=== PATIENT | female | born 1940 | race Caucasian/White ===

== ENCOUNTER 2018-03-31 17:49 | Inpatient (IN) | payer OTHER, MEDICAID ==
[~2018-03-31] VITALS: Ht 157.5 cm; Wt 110.7 kg
[2018-03-31] MEDS ORDERED: LevALBUTEROL HCL 1.25 MG/0.5 ML *CONC.* VIAL.NEB (XOPENEX CONC.) INH PRN (20:45)
[2018-03-31] MEDS ORDERED: ALPRAZolam 0.25 MG TABLET PO PRN (20:45)
[2018-03-31 20:51] VITALS: BP_SYST 130
[2018-03-31] MEDS ORDERED: cefTRIAXone 1 GM VIAL ONE (22:34)
[2018-03-31] MEDS: ZOLPIDEM TARTRATE 5 MG TABLET PO SCH (22:39)
[2018-03-31] MEDS: BACLOFEN 10 MG TABLET PO SCH (22:39)
[2018-03-31] MEDS: CALCIUM CARBONATE/VITAMIN D3 1 TAB TABLET PO SCH (22:39)
[2018-03-31] MEDS: OXYBUTYNIN CHLORIDE 5 MG TABLET PO SCH (22:39)
[2018-03-31] MEDS: INSULIN REGULAR, HUMAN 100 UNITS/ML, 10 ML VIAL (novoLIN R) SUBCUT PRN (22:44)
[2018-03-31] MEDS: oxyCODONE HCL 5 MG TABLET PO PRN (22:50)
[2018-03-31] MEDS: cefTRIAXone 1 GM in D5W 50 ML IV SCH (23:28)
[2018-03-31] MEDS: GABAPENTIN 300 MG CAPSULE PO SCH (23:33)
[2018-03-31 23:59] VITALS: BP_SYST 130
[2018-04-01 00:40] VITALS: BP_SYST 141
[2018-04-01] MEDS: LevALBUTEROL HCL 1.25 MG/0.5 ML *CONC.* VIAL.NEB (XOPENEX CONC.) INH SCH ×4 (00:58→20:06)
[2018-04-01 01:44] LABS: BILIRUBIN,URINE NEGATIVE (NEGATIVE); BLOOD, URINE NEGATIVE (NEGATIVE); CLARITY/URINE CLEAR (CLEAR); COLOR,URINE YELLOW (YELLOW); GLUCOSE,URINE NEGATIVE (NEGATIVE); KETONES,URINE NEGATIVE (NEGATIVE); LEUKOCYTE ESTERASE ,URINE NEGATIVE (NEGATIVE); NITRITE, URINE NEGATIVE (NEGATIVE); PROTEIN URINE NEGATIVE (NEGATIVE); UROBILINOGEN,URINE 0.2 (0.2-1.0)
[2018-04-01] MEDS: MORPHINE 2 MG/ML INJ. SYRINGE IVP PRN ×3 (04:35→16:51)
[2018-04-01] MEDS: INSULIN REGULAR, HUMAN 100 UNITS/ML, 10 ML VIAL (novoLIN R) SUBCUT PRN ×4 (07:06→21:22)
[2018-04-01 07:27] LABS: BASOPHILS # (AUTO) 0.1 K/uL (0.0-0.2); BASOPHILS % (AUTO) 0.7 % (0.0-2.0); EOSINOPHILS # (AUTO) 0.2 K/uL (0.0-0.4); EOSINOPHILS % (AUTO) 2.7 % (0.0-4.0); HEMATOCRIT 29.4 % (36-48); HEMOGLOBIN 9.6 g/dL (12.0-16.0); LYMPHOCYTES # (AUTO) 2.5 K/uL (1.0-5.5); LYMPHOCYTES % (AUTO) 27.6 % (20.5-51.5); MEAN CORPUSCULAR HEMOGLOBIN 29 pg (27-31); MEAN CORPUSCULAR HGB CONC 33 % (32-36); MEAN CORPUSCULAR VOLUME 89 fL (79.0-98.0); MONOCYTES # (AUTO) 0.8 K/uL (0.0-1.0); NEUTROPHILS # (AUTO) 5.3 K/uL (1.8-7.7); PLATELET COUNT (AUTO) 361 K/uL (130-430); RED BLOOD CELL COUNT(AUTO) 3.29 MIL/uL (4.2-6.2); RED CELL DISTRIBUTION WIDTH 13.7 % (9.0-15.0); WHITE BLOOD COUNT (AUTO) 8.9 K/uL (4.8-10.8)
[2018-04-01 07:53] LABS: ANION GAP 9 (5-15); CHLORIDE 103 mmol/L (98-107); CREATININE 1.14 mg/dL (0.55-1.30); GLUCOSE 212 mg/dL (70-99); POTASSIUM 4.1 mmol/L (3.5-5.1); SODIUM SERUM 138 mmol/L (136-145); UREA NITROGEN, BLOOD 24 mg/dL (8-21)
[2018-04-01 08:00] VITALS: BP_SYST 140
[2018-04-01] MEDS: ATORVASTATIN 20 MG TABLET PO SCH (09:29)
[2018-04-01] MEDS: NICOTINE 21 MG/24 HR PATCH.TD24 TD SCH (09:29)
[2018-04-01] MEDS: PARoxetine HCL 20 MG TABLET PO SCH (09:29)
[2018-04-01] MEDS: VALSARTAN 160 MG TABLET (DIOVAN) PO SCH (09:29)
[2018-04-01] MEDS: PREDNISONE 10 MG TABLET PO SCH (09:30)
[2018-04-01] MEDS: PANTOPRAZOLE SODIUM 40 MG TAB PO SCH (09:30)
[2018-04-01] MEDS: GABAPENTIN 300 MG CAPSULE PO SCH ×3 (09:30→21:17)
[2018-04-01] MEDS: HYDROCHLOROTHIAZIDE 12.5 MG CAPSULE (HCTZ) PO SCH (09:30)
[2018-04-01] MEDS: BACLOFEN 10 MG TABLET PO SCH ×2 (09:30→21:17)
[2018-04-01] MEDS: ASPIRIN 81 MG TAB.CHEW PO SCH (09:30)
[2018-04-01] MEDS: CALCIUM CARBONATE/VITAMIN D3 1 TAB TABLET PO SCH ×2 (09:30→21:17)
[2018-04-01] MEDS: CHOLECALCIFEROL (VITAMIN D-3) 400 UNIT TABLET PO SCH (09:30)
[2018-04-01] MEDS: OXYBUTYNIN CHLORIDE 5 MG TABLET PO SCH ×2 (09:30→21:16)
[2018-04-01 13:24] VITALS: BP_SYST 112
[2018-04-01 17:00] VITALS: BP_SYST 108
[2018-04-01 20:10] VITALS: BP_SYST 107
[2018-04-01] MEDS: ZOLPIDEM TARTRATE 5 MG TABLET PO SCH (21:00)
[2018-04-01] MEDS: cefTRIAXone 1 GM in D5W 50 ML IV SCH (21:17)
[2018-04-01] MEDS: oxyCODONE HCL 5 MG TABLET PO PRN (21:36)
[2018-04-02 00:30] VITALS: BP_SYST 128
[2018-04-02] MEDS: LevALBUTEROL HCL 1.25 MG/0.5 ML *CONC.* VIAL.NEB (XOPENEX CONC.) INH SCH ×4 (01:35→19:58)
[2018-04-02] MEDS: MORPHINE 2 MG/ML INJ. SYRINGE IVP PRN ×2 (05:43→13:13)
[2018-04-02] MEDS: INSULIN REGULAR, HUMAN 100 UNITS/ML, 10 ML VIAL (novoLIN R) SUBCUT PRN ×4 (05:57→22:35)
[2018-04-02] MEDS: ATORVASTATIN 20 MG TABLET PO SCH (09:10)
[2018-04-02] MEDS: NICOTINE 21 MG/24 HR PATCH.TD24 TD SCH (09:10)
[2018-04-02] MEDS: PARoxetine HCL 20 MG TABLET PO SCH (09:10)
[2018-04-02] MEDS: CALCIUM CARBONATE/VITAMIN D3 1 TAB TABLET PO SCH ×2 (09:11→22:22)
[2018-04-02] MEDS: GABAPENTIN 300 MG CAPSULE PO SCH ×3 (09:11→22:22)
[2018-04-02] MEDS: PREDNISONE 10 MG TABLET PO SCH (09:11)
[2018-04-02] MEDS: CHOLECALCIFEROL (VITAMIN D-3) 400 UNIT TABLET PO SCH (09:11)
[2018-04-02] MEDS: BACLOFEN 10 MG TABLET PO SCH ×2 (09:11→22:22)
[2018-04-02] MEDS: PANTOPRAZOLE SODIUM 40 MG TAB PO SCH (09:11)
[2018-04-02] MEDS: OXYBUTYNIN CHLORIDE 5 MG TABLET PO SCH ×2 (09:16→22:22)
[2018-04-02] MEDS: HYDROCHLOROTHIAZIDE 12.5 MG CAPSULE (HCTZ) PO SCH (09:16)
[2018-04-02] MEDS: ASPIRIN 81 MG TAB.CHEW PO SCH (09:16)
[2018-04-02] MEDS: VALSARTAN 160 MG TABLET (DIOVAN) PO SCH (09:17)
[2018-04-02 09:25] VITALS: BP_SYST 127
[2018-04-02 12:40] VITALS: BP_SYST 131
[2018-04-02 16:30] VITALS: BP_SYST 109
[2018-04-02] MEDS: ZOLPIDEM TARTRATE 5 MG TABLET PO SCH (21:00)
[2018-04-02] MEDS: cefTRIAXone 1 GM in D5W 50 ML IV SCH (22:24)
[2018-04-03 00:10] VITALS: BP_SYST 138
[2018-04-03] MEDS: LevALBUTEROL HCL 1.25 MG/0.5 ML *CONC.* VIAL.NEB (XOPENEX CONC.) INH SCH ×3 (01:20→13:11)
[2018-04-03] MEDS: ZOLPIDEM TARTRATE 5 MG TABLET PO SCH (01:59)
[2018-04-03] MEDS: MORPHINE 2 MG/ML INJ. SYRINGE IVP PRN ×2 (03:27→13:25)
[2018-04-03] MEDS: INSULIN REGULAR, HUMAN 100 UNITS/ML, 10 ML VIAL (novoLIN R) SUBCUT PRN ×2 (06:09→11:39)
[2018-04-03 08:06] VITALS: BP_SYST 137
[2018-04-03] MEDS: NICOTINE 21 MG/24 HR PATCH.TD24 TD SCH (08:37)
[2018-04-03] MEDS: CHOLECALCIFEROL (VITAMIN D-3) 400 UNIT TABLET PO SCH (08:37)
[2018-04-03] MEDS: ATORVASTATIN 20 MG TABLET PO SCH (08:37)
[2018-04-03] MEDS: PARoxetine HCL 20 MG TABLET PO SCH (08:38)
[2018-04-03] MEDS: BACLOFEN 10 MG TABLET PO SCH (08:38)
[2018-04-03] MEDS: VALSARTAN 160 MG TABLET (DIOVAN) PO SCH (08:38)
[2018-04-03] MEDS: HYDROCHLOROTHIAZIDE 12.5 MG CAPSULE (HCTZ) PO SCH (08:39)
[2018-04-03] MEDS: CALCIUM CARBONATE/VITAMIN D3 1 TAB TABLET PO SCH (08:40)
[2018-04-03] MEDS: OXYBUTYNIN CHLORIDE 5 MG TABLET PO SCH (08:40)
[2018-04-03] MEDS: ASPIRIN 81 MG TAB.CHEW PO SCH (08:40)
[2018-04-03] MEDS: PREDNISONE 10 MG TABLET PO SCH (08:40)
[2018-04-03] MEDS: GABAPENTIN 300 MG CAPSULE PO SCH ×2 (08:40→14:52)
[2018-04-03] MEDS: oxyCODONE HCL 5 MG TABLET PO PRN (08:40)
[2018-04-03] MEDS: PANTOPRAZOLE SODIUM 40 MG TAB PO SCH (08:40)
[2018-04-03 09:59] VITALS: BP_SYST 137
[2018-04-03 12:00] VITALS: BP_SYST 142
[2018-04-03 15:07] VITALS: BP_SYST 130
[2018-04-03 16:39] VITALS: BP_SYST 130
== END 2018-04-03 17:28 | DRG 563 ==
LOC: SMU 17:49
PROVIDERS: ADMIT Family Medicine; ATTEND Family Medicine
DX: S42.302A Unspecified fracture of shaft of humerus, left arm, initial encounter for closed fracture (principal); N39.0 Urinary tract infection, site not specified; Z68.41 Body mass index [BMI] 40.0-44.9, adult; M81.0 Age-related osteoporosis without current pathological fracture; J44.9 Chronic obstructive pulmonary disease, unspecified; I10 Essential (primary) hypertension; E11.22 Type 2 diabetes mellitus with diabetic chronic kidney disease; E53.8 Deficiency of other specified B group vitamins; E55.9 Vitamin D deficiency, unspecified; E66.01 Morbid (severe) obesity due to excess calories; E78.2 Mixed hyperlipidemia; G89.4 Chronic pain syndrome; I12.9 Hypertensive chronic kidney disease with stage 1 through stage 4 chronic kidney disease, or unspecified chronic kidney disease; N18.3 Chronic kidney disease, stage 3 (moderate); W19.XXXA Unspecified fall, initial encounter; Y93.89 Activity, other specified; Y92.89 Other specified places as the place of occurrence of the external cause; Y99.8 Other external cause status; Z79.4 Long term (current) use of insulin; Z87.891 Personal history of nicotine dependence
CPT/HCPCS: 36415; 71045; 73060-TC; 80048; 81003; 82962; 85025; 87086; 94640; 94760; 97110-GP; 97116-GP; 97530-GP; J0696; J1815; J2270; J7060; J7512; J7612

== ENCOUNTER 2019-05-08 14:38 | Emergency (ER) | payer OTHER ==
[~2019-05-08] VITALS: Ht 157.5 cm; Wt 120.2 kg
[2019-05-08 15:13] VITALS: BP_SYST 154
[2019-05-08] MEDS ORDERED: NACL 0.9% 1,000 ML IV ONE ×2 (15:29→18:15)
[2019-05-08] MEDS ORDERED: methylPREDNISolone SOD SUCC/PF 62.5 MG/ML VIAL IVP ONE (15:30)
[2019-05-08] MEDS ORDERED: ALBUTEROL SULFATE 0.083% 2.5 MG/3 ML VIAL.NEB IH ONE (15:30)
[2019-05-08] MEDS ORDERED: IPRATROPIUM BROM 0.5 MG/2.5 ML VIAL.NEB (ATROVENT) IH ONE (15:30)
[2019-05-08] MEDS ORDERED: EPINEPHrine JECT 1 MG/10 ML SYR SUBCUT ONE (15:45)
[2019-05-08] MEDS ORDERED: EPINEPHrine 1 MG/ML AMP SUBCUT ONE (16:00)
[2019-05-08] MEDS ORDERED: FAMOTIDINE PF 20 MG/2 ML VIAL IVP ONE (16:00)
[2019-05-08 16:06] LABS: HEMOGLOBIN 14.1 g/dL (12.0-16.0); MEAN CORPUSCULAR HEMOGLOBIN 33 pg (27-31); MEAN CORPUSCULAR HGB CONC 34 % (32-36); MEAN CORPUSCULAR VOLUME 97 fL (79.0-98.0); PLATELET COUNT (AUTO) 239 K/uL (130-430); RED BLOOD CELL COUNT(AUTO) 4.35 MIL/uL (4.2-6.2); RED CELL DISTRIBUTION WIDTH 13.2 % (9.0-15.0); WHITE BLOOD COUNT (AUTO) 19.3 K/uL (4.8-10.8)
[2019-05-08 16:36] LABS: ANION GAP 11 (5-15); CALCIUM 9.3 mg/dL (8.4-11.0); CHLORIDE 99 mmol/L (98-107); CREATININE 1.04 mg/dL (0.55-1.30); POTASSIUM 3.2 mmol/L (3.5-5.1); SODIUM SERUM 140 mmol/L (136-145); UREA NITROGEN, BLOOD 21 mg/dL (8-21)
[2019-05-08 16:40] LABS: INR 0.9 (0.8-1.2); PROTHROMBIN TIME 9.5 SECS (9.5-12.5)
[2019-05-08 16:42] LABS: ALANINE AMINOTRANSFERASE 30 U/L (12-78); ALBUMIN 3.5 g/dL (3.4-4.8); ASPARTATE AMINOTRANSFERASE 16 U/L (10-37); LIPASE 29 U/L (73-393); TOTAL BILIRUBIN 0.4 mg/dL (0.0-1.0)
[2019-05-08 16:48] LABS: GLUCOSE 142 mg/dL (70-99)
[2019-05-08 16:49] LABS: BILIRUBIN,URINE NEGATIVE (NEGATIVE); BLOOD, URINE NEGATIVE (NEGATIVE); CLARITY/URINE SL CLOUDY (CLEAR); COLOR,URINE YELLOW (YELLOW); GLUCOSE,URINE TRACE (NEGATIVE); KETONES,URINE NEGATIVE (NEGATIVE); LEUKOCYTE ESTERASE ,URINE 1+ (NEGATIVE); NITRITE, URINE POSITIVE (NEGATIVE); PH,URINE 6.5 (5.0-8.0); PROTEIN URINE NEGATIVE (NEGATIVE); UROBILINOGEN,URINE 0.2 (0.2-1.0)
[2019-05-08 17:25] LABS: BAND % (MANUAL) 16 % (0-6); EOSINOPHILS % (MANUAL) 0 % (0-7); LYMPHOCYTES % (MANUAL) 5 % (20-46); MONOCYTES % (MANUAL) 5 % (0-11)
[2019-05-08 17:26] LABS: BASOPHILS % (MANUAL) 0 % (0-2)
[2019-05-08 17:50] LABS: BACTERIA,URINE MANY /HPF (None Seen); RBC,URINE 0-3 /HPF (0-3); WBC,URINE 50-80 /HPF (0-3)
[2019-05-08 17:51] LABS: MUCUS,URINE None Seen /LPF (None Seen)
[2019-05-08] MEDS ORDERED: AREDS (18:06)
[2019-05-08] MEDS ORDERED: CRAN200C (18:07)
[2019-05-08] MEDS ORDERED: LEVA0.3126 (18:07)
[2019-05-08] MEDS ORDERED: MAGN250T10 (18:07)
[2019-05-08] MEDS ORDERED: MELA10CA (18:07)
[2019-05-08] MEDS ORDERED: ZOLP5TAB7 (18:07)
[2019-05-08] MEDS ORDERED: [UNRECOGNIZED DRUG - OTHER] (18:07)
[2019-05-08] MEDS ORDERED: DOCU50CA7 (18:07)
[2019-05-08] MEDS ORDERED: OXYB5TAB11 (18:07)
[2019-05-08] MEDS ORDERED: Lantus (18:07)
[2019-05-08] MEDS ORDERED: PRED10TA (18:07)
[2019-05-08] MEDS ORDERED: HYDR12.5 (18:07)
[2019-05-08] MEDS ORDERED: CARV12.548 (18:07)
[2019-05-08] MEDS ORDERED: ATOR-1 (18:07)
[2019-05-08] MEDS ORDERED: vitamin D3 (18:07)
[2019-05-08] MEDS ORDERED: PARO30TA74 (18:07)
[2019-05-08] MEDS ORDERED: OSC500 (18:07)
[2019-05-08] MEDS ORDERED: LOSA50TA28 (18:07)
[2019-05-08] MEDS ORDERED: CYAN10009 (18:07)
[2019-05-08] MEDS ORDERED: ASPI-524 (18:07)
[2019-05-08] MEDS ORDERED: HUMULIN (18:07)
[2019-05-08] MEDS ORDERED: GABA300T25 (18:07)
[2019-05-08] MEDS ORDERED: BACL10TA (18:07)
[2019-05-08] MEDS ORDERED: FAMO40TA71 (18:07)
[2019-05-08] MEDS ORDERED: cefTRIAXone 1 GM IVPB PREMIX 50 ML IV ONE (18:15)
[2019-05-09 02:01] VITALS: BP_SYST 138
== END 2019-05-09 02:01 | disposition short-term general hospital (02) ==
LOC: SED 14:38
DX: T78.3XXA Angioneurotic edema, initial encounter (principal); N12 Tubulo-interstitial nephritis, not specified as acute or chronic; D72.829 Elevated white blood cell count, unspecified; I10 Essential (primary) hypertension; J44.9 Chronic obstructive pulmonary disease, unspecified; F03.90 Unspecified dementia, unspecified severity, without behavioral disturbance, psychotic disturbance, mood disturbance, and anxiety; Z79.899 Other long term (current) drug therapy; X58.XXXA Exposure to other specified factors, initial encounter
CPT/HCPCS: 36415; 71045; 80053; 81000; 82962; 83605; 83690; 84484; 85007; 85027; 85610; 85730; 86886; 86900; 86901; 87086; 87186; 93005; 94640; 96365; 96372; 96375; 99285; J0171 ×2; J0696; J2930; J3490; J7030; J7613; P9059